=== PATIENT | female | born 1960 | race Caucasian/White ===

== ENCOUNTER → 2019-04-23 | Outpatient (CLI) | payer BC ==
[~2019-04-23] MED LIST: LORAZEPAM; Levothyroxine200 MCG; PROG100; SERT50; VALA500
== END ==
LOC: OLS 08:32 → LAB SHORT 08:32 → LAB FUT 04-22 17:30
DX: R10.9 Unspecified abdominal pain (principal); R19.7 Diarrhea, unspecified
CPT/HCPCS: 87493